=== PATIENT | female | born 1930 | race Caucasian/White ===

== ENCOUNTER 2018-04-20 14:11 | Emergency (ER) | payer OTHER ==
[~2018-04-20] VITALS: Ht 165.1 cm; Wt 74.8 kg
[2018-04-20] MEDS ORDERED: ATENOLOL100 MG (14:43)
[2018-04-20] MEDS ORDERED: SYNTHROID75 MCG (14:43)
[2018-04-21] MEDS ORDERED: AMOX-CLAV 875-1 EACH PO (12:11)
[2018-04-21] MEDS ORDERED: ADVIL LIQUI-GE200 MG PO (12:11)
== END 2018-04-21 12:36 | disposition home or self-care (01) ==
LOC: ER 14:11
DX: J69.8 Pneumonitis due to inhalation of other solids and liquids (principal); T75.1XXA Unspecified effects of drowning and nonfatal submersion, initial encounter; I10 Essential (primary) hypertension